=== PATIENT | female | born 1975 | race African-American/Black ===

== ENCOUNTER 2018-11-03 13:35 | Emergency (ER) | payer OTHER ==
[2018-11-03 13:44] VITALS: BP 142/90
--- NOTE | 2018-11-03 14:17 | UC ---
Shoulder Pain HPI - HPI Summary HPI Summary: 43 y/o female presents to the urgent care c/o Rt shoulder pain for the past 4 weeks. She also c/o left breast pain for the past 2 weeks. Shoulder pain is 6/ 10 w/ certain movement and w/ deep breathing at times w/o any radiation. or numbness or tingling over the Rt arm. Pt states in her left breat she feels a small lump that it is painful at touch 6/10. She has been taking her usual medication for Lupus and RA to alleviate pain w/o any improvement. She did a Mammogram on 01/2019 which was negative. Pt denies SOB, chest pain, GOODWIN, dizziness, abdominal pain, N/V/D. - History of Current Complaint Chief Complaint: UCGeneralIllness Stated Complaint: SHOULDER PAIN Time Seen by Provider: 11/03/18 13:46 Hx Obtained From: Patient Hx Last Menstrual Period: start of October Onset/Duration: Gradual Onset, Lasting Weeks - 4 weeks, Still Present, Worse Since - 1 week Timing: Hours Severity Initially: Mild Severity Currently: Moderate Location Of Pain: Is Discrete @ - RT shoulder, Radiates To - Rt scapula Pain Intensity: 6 Pain Scale Used: 0-10 Numeric Character: Sharp, Throbbing Aggravating Factor(s): Movement, Lifting Alleviating Factor(s): Rest, OTC Meds Associated Signs And Symptoms: Positive: Negative. Negative: Swelling, Redness , Bruising, Fever, Weakness, Numbness/Tingling - Risk Factors Non-Orthopedic Risk Factor: Negative DVT Risk Factors: Negative Septic Arthritis Risk Factor: Negative - Allergies/Home Medications Allergies/Adverse Reactions: Allergies Allergy/AdvReac Type Severity Reaction Status Date / Time etanercept [From Enbrel] Allergy Unknown Verified 11/03/18 13:45 Reaction Details morphine Allergy Hallucinati Verified 11/03/18 13:45 ons tocilizumab [From Actemra] Allergy Unknown Verified 11/03/18 13:45 Reaction Details PMH/Surg Hx/FS Hx/Imm Hx Previously Healthy: Yes Other Endocrine History: Lupus, RA GI/ History: Gastroesophageal Reflux - Surgical History Surgical History: Yes Surgery Procedure, Year, and Place: 3 SINUS SURGERIES;. CERVICAL POLYPS REMOVED ; - Family History Known Family History: Positive: Cardiac Disease Family History: Dyslipidemia - Social History Occupation: Employed Full-time Lives: With Family Alcohol Use: None Substance Use Type: None Smoking Status (MU): Never Smoked Tobacco Have You Smoked in the Last Year: No Review of Systems All Other Systems Reviewed And Are Negative: Yes Constitutional: Positive: Negative Skin: Positive: Negative Eyes: Positive: Negative ENT: Positive: Negative Respiratory: Positive: Negative Cardiovascular: Positive: Negative Gastrointestinal: Positive: Negative Genitourinary: Positive: Negative Motor: Positive: Negative Neurovascular: Positive: Negative Musculoskeletal: Positive: Decreased ROM - Rt shoulder,, Other: - RT shoulder pain. Left breast pain Neurological: Positive: Negative Psychological: Positive: Negative Is Patient Immunocompromised?: No Physical Exam - Summary Physical Exam Summary: Vital Signs Reviewed: Yes GENERAL: Well-Appearing, No Pain Distress, Well-Nourished female w/o sitting in the examining table w/o any apparent pain distress Eyes: Positive: Conjunctiva Clear - PERRL,EOMI ENT: Positive: Normal ENT inspection, Hearing grossly normal, Pharyngeal erythema - mild, Nasal drainage - clear, Uvula midline Neck: Positive: Supple, Nontender, No Lymphadenopathy Respiratory: Positive: Chest non-tender, Lungs clear, Normal breath sounds, No respiratory distress Cardiovascular: Positive: RRR, No Murmur, Pulses Normal, Brisk Capillary Refill Breast: breast are symmetric and have normal contour. Skin is of normal color and appearance; there are not edema, ulceration, or erythema. Nipples are of normal size and shape; there is no nipple retraction, ulceration or discharge. Positive tender discrete nodule around 5 o'clock about 0.5cm in size on palpation. Abdomen Description: Positive: Nontender, No Organomegaly, Soft. Negative: CVA Tenderness (R), CVA Tenderness (L) Bowel Sounds: Positive: Present Musculoskeletal: LF shoulder: The RT shoulder is with/without obvious asymmetry or deformity when compared to the L shoulder. No ecchymosis or bruising, no crepitus palpated. No bony deformity or prominence of humeral head. No erythema , warmth. No Point Tenderness to palpation over the clavicle. Point tenderness over the lateral side of RT scapula. positive tenderness over Acromioclavicular joint and humeral head with no swelling, NT to palpation of the bicipital groove . NT to palpation of the muscles of the sternocleidomastoid , pectoralis, biceps/triceps, deltoid, trapezius, . Limited ROM due to pain especially in adduction and abduction.on active, internal/external rotation, flexion/extension. "empty can and drop arm test unable to perform due to pain. No axillary tenderness or lymphadenopathy. Normal sensation over the deltoid and fingers. Distal motor and neurovascular status is intact. Neurological Exam: Normal Psychological Exam: Normal Skin Exam: Normal Triage Information Reviewed: Yes Vital Signs: Initial Vital Signs Temp 98 F 11/03/18 13:39 Pulse 82 11/03/18 13:39 Resp 16 11/03/18 13:39 BP 142/90 11/03/18 13:39 Pulse Ox 100 11/03/18 13:39 Shoulder Course/Dx - Course Course Of Treatment: 43 y/o female presents to the urgent care c/o Rt shoulder pain for the past 4 weeks. She also c/o left breast pain for the past 2 weeks. Shoulder pain is 6/10 w/ certain movement and w/ deep breathing at times w/o any radiation. or numbness or tingling over the Rt arm. Pt states in her left breat she feels a small lump that it is painful at touch 6/10. She has been taking her usual medication for Lupus and RA to alleviate pain w/o any improvement. She did a Mammogram on 01/2019 which was negative. Pt denies SOB, chest pain, GOODWIN, dizziness, abdominal pain, N/V/D. Hx obtained. Pt w/ point tenderness over the lateral side pf the Rt scapula and over AC joint w/o any swelling. Also w/ a discrete tender palpable nodule around 5 o'clock on examination. LMP:10/09/2018 w/ regular menstrual cycles. Pt declined test. LF shoulder X-ray ordered: Impression: AC join arthritis, No fracture observed. Pt's advised to continue taking Ibuprofen PO to alleviate symptoms and also for her breast pain. Pt given referral for Physcial therapy and f/u appt w/ [facility] who specialize on ostearhtritis for further evalautiona and treatment on her RT shoulder arthritis. I reviewed last mammogram done on 2017 which was negative.Pt's breast nodule can be fibocystic brease disease. However, I strongly advised PT to f/u w/ her PCP for an breast ulstrasound or repeat mammogram to r/o any abdnormality. Pt educated on breast nodules. Pt's BP is elevated today advised to decrease salt in diet, monitor BP and f/u with PCP for further management. Pt understood and agreed w/ plan of care. - Differential Dx/Diagnosis Differential Diagnosis/HQI/PQRI: Arthritis, Bursitis, Rotator Cuff Injury, Sprain, Strain, Tendonitis Provider Diagnosis: Breast pain, left, Breast lump on left side at 5 o'clock position, Right shoulder pain, AC (acromioclavicular) joint arthritis, Elevated BP without diagnosis of hypertension Discharge - Sign-Out/Discharge Documenting (check all that apply): Patient Departure - D/C home All imaging exams completed and their final reports reviewed: Yes - Discharge Plan Condition: Stable Disposition: HOME Patient Education Materials: Osteoarthritis (ED), Fibrocystic Breast Changes ( ED) Referrals: [facility] [Provider Group] Wei Duran MD [Primary Care Provider] - 2 Days Additional Instructions: 1-Please continue taking Ibuprofen PO q6-8hrs prn after meals as directed to alleviate RT shoulder pain and breast pain 2-Please F/u Physical therapy referral or f/u referral w/ [facility] who specialize on osteoarthritis for further evaluation and treatment. 3- Please f/u with your PCP Dr Duran for a repeat Mammogram referral or breast ultrasound for further management on your left breast painful nodule. 4- Your BP is elevated today. please decrease salt in your diet, monitor BP and if it continues to be elevated please f/u with your PCP for further management. - Billing Disposition and Condition Condition: STABLE Disposition: Home
== END 2018-11-03 15:20 | disposition home or self-care (01) ==
LOC: UCEAST 13:35
DX: N64.4 Mastodynia (principal); N63.20 Unspecified lump in the left breast, unspecified quadrant; M25.511 Pain in right shoulder; M19.011 Primary osteoarthritis, right shoulder; R03.0 Elevated blood-pressure reading, without diagnosis of hypertension; Z88.5 Allergy status to narcotic agent; Z88.8 Allergy status to other drugs, medicaments and biological substances
CPT/HCPCS: 99212; G0463

== ENCOUNTER 2019-06-22 21:55 | Emergency (ER) | payer MEDICAID, OTHER ==
--- NOTE | 2019-06-22 22:59 | ED ---
Abdominal Pain/Female - HPI Summary HPI Summary: The pt is a 44 yr old female presenting [facility] c/o abd pain beginning 5 days NON DESTRUCTIVE TESTER. She mentions that she is concerned for a bleeding ulcer and has tried to schedule an appointment with a geographic information systems analyst. She rates her current pain intensity a 6/10. She mentions that her abd pain is aggravated by eating, drinking, and urinating. No alleviating factors noted. She also reports back pain, vaginal pain, nausea, and loose stool lasting 5 days but denies any vomiting, vaginal discharge or vaginal bleeding. She has Hx of GERD and IBS. Home Medications Medication Instructions Recorded Confirmed Type Albuterol HFA INHALER* [Ventolin 2 puff INH Q4H PRN 07/19/13 06/22/19 History HFA Inhaler*] Lidocaine PATCH 5%* [Lidoderm 5% 1 patch TRANSDERM DAILY PRN 12/09/14 06/22/19 History Patch*] Methotrexate TAB* 10 mg PO Q7D 01/06/15 06/22/19 History Gabapentin CAP(*) [Neurontin 300 900 mg PO BEDTIME PRN 03/12/15 06/22/19 History CAP(*)] Abatacept/Maltose [Orencia 250 mg 250 mg IV WEEKLY 11/01/18 06/22/19 History Vial] Atorvastatin* [Lipitor 40 MG*] 40 mg PO DAILY 11/01/18 06/22/19 History BuPROPion XL* [Bupropion XL*] 300 mg PO DAILY 11/01/18 06/22/19 History Citalopram TAB* [Celexa TAB*] 40 mg PO DAILY 11/01/18 06/22/[address] CAP* [Cymbalta CAP*] 60 mg PO DAILY 11/01/18 06/22/19 History Diclofenac 1% GEL (NF) [Voltaren 1 applic TOPICAL DAILY 11/01/18 06/22/19 History 1% GEL (NF)] Fluticasone NASAL SPRAY 50MCG* 2 spray BOTH NARES DAILY 11/01/18 06/22/19 History [Flonase NASAL SPRAY 50MCG*] Hydroxychloroquine TAB* [Plaquenil 200 mg PO BID 11/01/18 06/22/19 History TAB*] Ketoconazole 2 % CREAM (NF) 1 applic TOPICAL DAILY PRN 11/01/18 06/22/19 History [Nizoral 2% CREAM (NF)] Loratadine 10 mg PO DAILY 11/01/18 06/22/19 History Nabumetone TAB* [Relafen TAB*] 500 mg PO BID 11/01/18 06/22/19 History Omeprazole 20 mg PO DAILY 11/01/18 06/22/19 History Famotidine TAB* [Pepcid 20 MG TAB*] 20 mg PO BID 06/22/19 06/22/19 History Pantoprazole TAB * [Protonix TAB*] 40 mg PO DAILY 06/22/19 06/22/19 History Sucralfate SUSP (NF) [Carafate 1 gm PO QID 06/22/19 06/22/19 History SUSP (NF)] - History of Current Complaint Chief Complaint: EDAbdPain Stated Complaint: "I THINK I HAVE A BLEEDING ULCER PER PT" Time Seen by Provider: 06/22/19 22:29 Hx Obtained From: Patient Hx Last Menstrual Period: start of October Onset/Duration: Sudden Onset, Lasting Days, Still Present Timing: Constant Severity Initially: Moderate Severity Currently: Moderate Pain Intensity: 6 Pain Scale Used: 0-10 Numeric Location: Diffuse Aggravating Factor(s): Food, Other: - urinating, drinking Alleviating Factor(s): Nothing Associated Signs and Symptoms: Positive: Back Pain, Nausea, Other: - pos - loose stool, vaginal pain. Negative: Vaginal Bleeding, Vaginal Discharge, Vomiting Allergies/Adverse Reactions: Allergies Allergy/AdvReac Type Severity Reaction Status Date / Time etanercept [From Enbrel] Allergy Unknown Verified 12/10/18 09:04 Reaction Details morphine Allergy Hallucinati Verified 12/10/18 09:04 ons tocilizumab [From Actemra] Allergy Unknown Verified 12/10/18 09:04 Reaction Details Home Medications: Home Medications Famotidine TAB* [Pepcid 20 MG TAB*] 20 mg PO BID 06/22/19 [History Confirmed ] Pantoprazole TAB * [Protonix TAB*] 40 mg PO DAILY 06/22/19 [History Confirmed ] Sucralfate SUSP (NF) [Carafate SUSP (NF)] 1 gm PO QID 06/22/19 [History Confirmed 06/22/19] PMH/Surg Hx/FS Hx/Imm Hx Endocrine/Hematology History: Reports: Hx Systemic Lupus Erythematosus Denies: Hx Diabetes, Hx Thyroid Disease Cardiovascular History: Denies: Hx Congestive Heart Failure, Hx Hypertension, Hx Pacemaker/ICD Respiratory History: Reports: Hx Seasonal Allergies, Hx Sleep Apnea, Other Respiratory Problems/Disorders - Pleural Effusion Denies: Hx Asthma, Hx Chronic Obstructive Pulmonary Disease (COPD) GI History: Reports: Hx Gastroesophageal Reflux Disease, Hx Irritable Bowel - ' 08 Denies: Hx Ulcer History: Denies: Hx Renal Disease Musculoskeletal History: Reports: Hx Arthritis - Rheumatoid Arthritis, Hx Back Problems, Hx Fibromyalgia Denies: Hx Rheumatoid Arthritis, Hx Osteoporosis Sensory History: Denies: Hx Hearing Aid Neurological History: Reports: Hx Headaches, Other Neuro Impairments/Disorders - PAIN CLINIC PT Psychiatric History: Reports: Hx Anxiety, Hx Depression Denies: Hx Panic Disorder - Surgical History Surgery Procedure, Year, and Place: 3 SINUS SURGERIES;. CERVICAL POLYPS REMOVED ; Infectious Disease History: No Infectious Disease History: Denies: Hx Hepatitis, Hx Human Immunodeficiency Virus (HIV), Traveled Outside the [place] in Last 30 Days - Family History Known Family History: Positive: Cardiac Disease Family History: Dyslipidemia - Social History Alcohol Use: None Substance Use Type: Reports: None Hx Tobacco Use: No Smoking Status (MU): Never Smoked Tobacco Have You Smoked in the Last Year: No Review of Systems Positive: Abdominal Pain, Nausea, Other - pos - loose stool. Negative: Vomiting Genitourinary: Negative - bleeding Positive: other - pos - vaginal pain. Negative: discharge Musculoskeletal: Other - pos - back pain All Other Systems Reviewed And Are Negative: Yes Physical Exam - Summary Physical Exam Summary: General: Well-developed, Well-nourished, obese female. No acute distress. HEENT: Normocephalic, Atraumatic. Eyes: Conjuctiva normal, PERRL. Ears: TMs within normal limits. Nares: (-) discharge, (-) erythema. Oropharynx: Clear, mucous membranes moist, (-) exudates. Neck: Soft, FROM, (-) lymphadenopathy, (-) thyromegaly, (-) JVD. Cardiovascular: Normal sinus rhythm, (-) murmur. Lungs: Clear to auscultation bilaterally (-) wheezes, (-) rales, (-) rhonchi. Abdomen: Soft, mild tenderness in epigastric and suprapubic areas, non-distended , (-) organomegaly, normal bowel sounds. Back: (-) CVA tenderness Extremities: No edema. Skin: Warm, dry, (-) rash. Neuro: Alert and oriented x3, no focal deficits. Psychiatric: Mood normal, affect normal. Triage Information Reviewed: Yes Vital Signs On Initial Exam: Initial Vitals Temp Pulse Resp BP Pulse Ox 97.4 F 87 18 135/100 100 06/22/19 22:01 06/22/19 22:01 06/22/19 22:01 06/22/19 22:01 06/22/19 22:01 Vital Signs Reviewed: Yes Diagnostics - Vital Signs Vital Signs Temp Pulse Resp BP Pulse Ox 06/22/19 22:01 97.4 F 87 18 135/100 100 - Laboratory Result Diagrams: 06/22/19 23:58 06/22/19 23:58 Lab Statement: Any lab studies that have been ordered have been reviewed, and results considered in the medical decision making process. Re-Evaluation - Re-Evaluation First Eval Re-Evaluation Time: 02:06 Comment: I have discussed results with the patient and (Sx) is resolved. Discussed symptoms that warrant immediate return to ED. Abdominal Pain Fem Course/Dx - Course Course Of Treatment: The pt is a 44 yr old female presenting [facility] c/o abd pain beginning 5 days NON DESTRUCTIVE TESTER. She also reports back pain, vaginal pain, nausea, and loose stool lasting 5 days but denies any vomiting, vaginal discharge or vaginal bleeding. Test results normal except for Hgb 11, Hct 34, MCV 77, MCH 25 , RDW 18, potassium 3.1, Calcium 7.8, Alkaline Phosphatase 157, and CRP 12.16. In the ED course pt was given 10 mg Reglan, 40 mg Protonix, and 1000 mls fluids. Final Dx are abdominal pain, nausea, and hypokalemia. Pt will be discharged home with PCP follow up. Pt is agreeable with this plan. - Diagnoses Provider Diagnoses: Hypokalemia, Abdominal pain, Nausea Discharge ED - Sign-Out/Discharge Documenting (check all that apply): Patient Departure - discharge Patient Received Moderate/Deep Sedation with Procedure: No - Discharge Plan Condition: Stable Disposition: HOME Prescriptions: Ondansetron ODT TAB* [Zofran 4 MG Odt TAB*] 4 mg PO Q6H PRN #12 tab.odt PRN Reason: Nausea Patient Education Materials: Hypokalemia (ED), Abdominal Pain (ED) Referrals: Wei Duran MD [Primary Care Provider] - 3 Days Additional Instructions: Please follow up with your primary care physician within three days. Please return to ED for any new or worsening symptoms. - Billing Disposition and Condition Condition: STABLE Disposition: Home - Attestation Statements Document Initiated by Geoffrey: Yes Documenting Scribe: Ronaldo Alves Provider For Whom Geoffrey is Documenting (Include Credential): Constance Abarca MD Scribe Attestation: IRonaldo, scribed for Constance Abarca MD on 06/23/19 at 0410. Scribe Documentation Reviewed: Yes Provider Attestation: The documentation as recorded by the dimitrisibeRonaldo accurately reflects the service I personally performed and the decisions made by me, Constance Abarca MD Status of Scribe Document: Viewed
[2019-06-22] MEDS ORDERED: NS 0.9% 1000 ML** 1,000 ML IV ONE (23:21)
[2019-06-22] MEDS ORDERED: Metoclopramide IV* 5 MG/ML 2 ML VIAL IV ONE (23:21)
[2019-06-22] MEDS ORDERED: Pantoprazole IV* 40 MG IV ONE (23:21)
[2019-06-23] LABS: Urine Appearance Clear; Urine Bilirubin Negative (Negative); Urine Blood Negative (Negative); Urine Color Yellow; Urine Glucose Negative (Negative); Urine Ketones Negative (Negative); Urine Nitrite Negative (Negative); Urine Protein Negative (Negative); Urine Specific Gravity 1.011 (1.010-1.030); Urine Urobilinogen Negative (Negative)
[2019-06-23 00:18] LABS: INR 1.03 (0.82-1.09)
[2019-06-23 00:22] LABS: Hematocrit 34 % (35-47); Mean Corpuscular HGB Conc 32 g/dL (31-36); Mean Corpuscular Hemoglobin 25 pg (27-31); Mean Corpuscular Volume 77 fL (80-97); Red Cell Distribution Width 18 % (10-15); White Blood Count 6.5 10^3/uL (3.5-10.8)
[2019-06-23 00:29] LABS: ALT 18 U/L (7-52); AST 20 U/L (13-39); Albumin 3.5 g/dL (3.2-5.2); Albumin/Globulin Ratio 1.2 (1-3); Alkaline Phosphatase 157 U/L (34-104); Amylase 54 U/L (29-103); Anion Gap 7 mmol/L (2-11); Blood Urea Nitrogen 7 mg/dL (6-24); C Reactive Protein 12.16 mg/L (<8.01); CO2 Carbon Dioxide 28 mmol/L (22-32); Calcium 7.8 mg/dL (8.6-10.3); Chloride 104 mmol/L (101-111); EGFR Non-African American 91.8 (>60); Globulin 2.9 g/dL (2-4); Glucose 89 mg/dL (70-100); Potassium 3.1 mmol/L (3.5-5.0); Sodium 139 mmol/L (135-145); Total Protein 6.4 g/dL (6.4-8.9)
[2019-06-23 00:36] LABS: HCG Pregnancy < 0.60 mIU/mL
[2019-06-23 01:07] LABS: ABS Basophils 0.1 10^3/ul (0-0.2); ABS Eosinophils 0.3 10^3/ul (0-0.6); ABS Lymphocytes 2.9 10^3/ul (1.0-4.8); ABS Monocytes 0.6 10^3/ul (0-0.8); ABS Neutrophils 2.6 10^3/ul (1.5-7.7); Eosinophil % 4.6 %; Lymphocyte % 44.7 %; Mean Platelet Volume 8.2 fL (7.4-10.4); Nucleated Red Blood Cells % 0.1; Platelet Count 245 10^3/uL (150-450)
[2019-06-23 02:23] VITALS: BP 131/88
== END 2019-06-23 02:21 | disposition home or self-care (01) ==
LOC: ED 21:55
DX: E87.6 Hypokalemia (principal); R10.9 Unspecified abdominal pain; R11.0 Nausea; M32.9 Systemic lupus erythematosus, unspecified; K21.9 Gastro-esophageal reflux disease without esophagitis; F41.9 Anxiety disorder, unspecified; F32.9 Major depressive disorder, single episode, unspecified; Z79.899 Other long term (current) drug therapy; Z88.5 Allergy status to narcotic agent; Z88.8 Allergy status to other drugs, medicaments and biological substances
CPT/HCPCS: 36415; 80053; 81003; 82150; 83605; 83690; 84702; 85025; 85610; 86140; 96361; 96374; 96375; 99283; J2765